=== PATIENT | female | born 1975 | race African-American/Black ===

== ENCOUNTER 2017-02-05 17:21 | Inpatient (IN) | payer OTHER ==
[~2017-02-05] VITALS: Ht 157.5 cm; Wt 83.9 kg
[2017-02-05 17:39] VITALS: Ht 157.5 cm; Wt 83.9 kg
[2017-02-05] MEDS ORDERED: ACETAMINOPHEN 325 MG TAB PO PRN (18:00)
[2017-02-05] MEDS ORDERED: NACL 0.9% 3 ML SYG IV SCH (18:00)
[2017-02-05] MEDS ORDERED: morphine 2 MG INJ IV PRN (18:00)
[2017-02-05] MEDS ORDERED: BISACODYL (EC) 5 MG TAB PO PRN (18:00)
[2017-02-05] MEDS ORDERED: DOCUSATE SODIUM 100 MG CAP PO PRN (18:00)
[2017-02-05] MEDS ORDERED: MAGNESIUM HYDROXIDE 30ML CUP PO PRN (18:00)
[2017-02-05] MEDS: AMPICILLIN/SULB 3 GM/NS (PMX) 100 ML IVPB SCH (18:27)
--- NOTE | 2017-02-05 18:59 | HP ---
Date/Time of Note Date/Time of Note DATE: 02/05/17 TIME: 18:52 Assessment/Plan VTE Prophylaxis VTE Prophylaxis Intervention: SCD's Lines/Catheters IV Catheter Type (from Nrsg): Peripheral IV Assessment/Plan Assessment/Plan 41 yo F presents with R lower jaw cellulitis suspect 2/2 underlying dental caries PLAN IV unasyn soft diet f/u OSH blood cultures in AM if able to tolerate PO, change to PO Augmentin and dc with outpatient dental f/u if PO tolerance and swelling do not improve, low threshold to repeat imaging HPI/ROS Admit Date/Time Admit Date/Time Feb 05, 2017 at 17:21 Hx of Present Illness CC R sided facial swelling HPI 41 yo F with no chronic medical problems presented to [place] ER initially on Sunday with c/o R gum pain and swelling and mild R inf jaw swelling. CT at that time without evidence of fluid collection, just soft tissue swelling consistent with cellulitis and multiple cavities in the teeth in her R lower jaw. Pt was discharged early Sunday morning with PO abx. Pt then returned to the [place] ER this AM stating that she had been unable to fill the Rx for Augmentin she'd been given at the ER and that her facial swelling now included the R side of her neck. Pt transferred to [facility] for insurance reasons. +chills at home, low grade temp. Cannot recall the last time she saw a dentist for routine dental care 10pROS neg except as per HPI PMHx: none Soc Hx: lives in the community PMH/Family/Social Social History Smoking Status: Current every day smoker Exam/Review of Systems Exam Exam nad, sitting up in bed EOMI MMM airway patent no facial erythema, +mod R lower jaw swelling, +ttp and fullness of submandibular LNs, +ttp along anterior cervical LNs on R no ttp along R inf gums lungs clear abd soft no mrg no rashes no edema OSH labs prior to transfer WBCs 9.8 hcg neg Cr 0.7 Medications Medications Current Medications Acetaminophen (Tylenol Tab) 650 mg Q6H PRN PO PAIN LEVEL 1-3 OR FEVER; Start at 18:00 Acetaminophen/ Hydrocodone Bitart ([place] (5/325)) 1 tab Q6H PRN PO MODERATE PAIN LEVEL 4-6; Start 02/05/17 at 18:00 Morphine Sulfate (morphine) 2 mg Q4H PRN IV SEVERE PAIN LEVEL 7-10; Start 02/05 at 18:00 Docusate Sodium (Colace) 100 mg Q12H PRN PO CONSTIPATION; Start 02/05/17 at 18: 00 Magnesium Hydroxide (Milk Of Mag) 30 ml DAILY PRN PO CONSTIPATION; Start at 18:00 Bisacodyl (Dulcolax) 5 mg DAILY PRN PO CONSTIPATION; Start 02/05/17 at 18:00 Enoxaparin Sodium 40 mg 40 mg DAILY SC ; Start 02/06/17 at 09:00 Ampicillin Sodium/ Sulbactam Sodium (Unasyn 3gm/NS (Pmx)) 100 ml @ 100 mls/hr Q6 IVPB Last administered on 02/05/17t 18:27; Admin Dose 100 MLS/HR; Start at 18:00 CRUZ CRAFT MD Feb 05, 2017 18:59
[2017-02-05 20:00] VITALS: BP 118/68; RESP 18
[2017-02-05] MEDS: HYDROCODONE/APAP (5/325) TAB PO PRN (22:23)
[2017-02-06] MEDS: AMPICILLIN/SULB 3 GM/NS (PMX) 100 ML IVPB SCH ×5 (00:08→19:47)
[2017-02-06 02:27] VITALS: BP 105/64; RESP 16
[2017-02-06 05:39] LABS: BASOPHILS % 0.2 % (0.0-2.0); EOSINOPHILS # 0.4 10^3/ul (0.0-0.5); EOSINOPHILS % 5.5 % (0.0-7.0); HEMATOCRIT 34.8 % (37.0-47.0); HEMOGLOBIN 11.1 g/dl (12.0-16.0); LYMPHOCYTES % 37.2 % (15.0-51.0); MEAN CORPUSCULAR HEMOGLOBIN 26.2 pg (29.0-33.0); MEAN CORPUSCULAR HGB CONC 31.9 g/dl (32.0-37.0); MEAN CORPUSCULAR VOLUME 82.3 fl (82.0-101.0); MEAN PLATELET VOLUME 8.9 fl (7.4-10.4); MONOCYTE # 0.5 10^3/ul (0.3-0.9); NEUTROPHILS % 50.9 % (39.0-77.0); PLATELET COUNT 338 10^3/UL (140-415); RED BLOOD COUNT 4.23 10^6/ul (4.20-5.40); RED CELL DISTRIBUTION WIDTH 13.3 % (11.5-14.5)
[2017-02-06 06:08] LABS: ALBUMIN 3.7 g/dl (3.3-4.9); ALBUMIN/GLOBULIN RATIO 1.08; BILIRUBIN,INDIRECT 0.4 mg/dl (0-1.1); BILIRUBIN,TOTAL 0.4 mg/dl (0.2-1.3); CALCIUM 8.8 mg/dl (8.4-10.2); CREATININE 0.63 mg/dl (0.44-1.00); POTASSIUM 3.3 mmol/L (3.5-5.1); TOTAL PROTEIN 7.1 g/dl (6.1-8.1)
[2017-02-06 08:15] VITALS: BP 112/64; RESP 18
[2017-02-06] MEDS: ENOXAPARIN 40 MG/0.4 ML SYG SC SCH (09:00)
[2017-02-06] MEDS ORDERED: POTASSIUM CHLORIDE (SR) 20 MEQ TAB PO STA (09:02)
[2017-02-06] MEDS: HYDROCODONE/APAP (5/325) TAB PO PRN ×2 (14:53→21:55)
--- NOTE | 2017-02-06 15:05 | PN ---
Date/Time of Note Date/Time of Note DATE: 02/06/17 TIME: 15:04 Assessment/Plan VTE Prophylaxis VTE Prophylaxis Intervention: SCD's Lines/Catheters IV Catheter Type (from Nrs): Saline Lock Urinary Cath still in place: No Assessment/Plan Assessment/Plan 41 yo F presents with R lower jaw cellulitis suspect 2/2 underlying dental caries PLAN IV unasyn soft diet f/u OSH blood cultures in AM CT neck to r/o abscess Subjective 24 Hr Interval Summary Free Text/Dictation R inferior facial swelling improving but now with more submandibular swelling Exam/Review of Systems Vital Signs Vitals Vital Signs Date Time Temp Pulse Resp B/P Pulse Ox O2 Delivery O2 Flow Rate FiO2 02/06/17 08:15 98.1 83 18 112/64 98 Intake and Output 02/05/17 02/05/17 02/06/17 14:59 22:59 06:59 Intake Total 220 ml 200 ml Balance 220 ml 200 ml Exam nad r lower facial swelling improved, inc ttp R submandibular LNs lungs clear no mrg abd soft no rashes WBCs ok blood cultures at [facility] at 24 hours Results Result Diagram: 02/06/17 0502 02/06/17 0515 Results 24 hrs Laboratory Tests Test 02/06/17 05:02 02/06/17 05:15 White Blood Count 8.0 Red Blood Count 4.23 Hemoglobin 11.1 L Hematocrit 34.8 L Mean Corpuscular Volume 82.3 Mean Corpuscular Hemoglobin 26.2 L Mean Corpuscular Hemoglobin Concent 31.9 L Red Cell Distribution Width 13.3 Platelet Count 338 Mean Platelet Volume 8.9 Neutrophils % 50.9 Lymphocytes % 37.2 Monocytes % 6.0 Eosinophils % 5.5 Basophils % 0.2 Nucleated Red Blood Cells % 0.0 Neutrophils # (Manual) 4 Lymphocytes # 3.0 H Monocytes # 0.5 Eosinophils # 0.4 Basophils # 0.0 Nucleated Red Blood Cells # 0.0 Sodium Level 136 Potassium Level 3.3 L Chloride Level 96 L Carbon Dioxide Level 30 Anion Gap 13 Blood Urea Nitrogen 4 L Creatinine 0.63 Glucose Level 90 Calcium Level 8.8 Total Bilirubin 0.4 Direct Bilirubin 0.00 Indirect Bilirubin 0.4 Aspartate Amino Transf (AST/SGOT) 13 L Alanine Aminotransferase (ALT/SGPT) 26 Alkaline Phosphatase 62 Total Protein 7.1 Albumin 3.7 Globulin 3.40 H Albumin/Globulin Ratio 1.08 Medications Medications Current Medications Acetaminophen (Tylenol Tab) 650 mg Q6H PRN PO PAIN LEVEL 1-3 OR FEVER; Start at 18:00 Acetaminophen/ Hydrocodone Bitart ([place] (5/325)) 1 tab Q6H PRN PO MODERATE PAIN LEVEL 4-6 Last administered on 02/06/17 14:53; Admin Dose 1 TAB; Start at 18:00 Morphine Sulfate (morphine) 2 mg Q4H PRN IV SEVERE PAIN LEVEL 7-10; Start 02/05 at 18:00 Docusate Sodium (Colace) 100 mg Q12H PRN PO CONSTIPATION; Start 02/05/17 at 18: 00 Magnesium Hydroxide (Milk Of Mag) 30 ml DAILY PRN PO CONSTIPATION; Start at 18:00 Bisacodyl (Dulcolax) 5 mg DAILY PRN PO CONSTIPATION; Start 02/05/17 at 18:00 Enoxaparin Sodium 40 mg 40 mg DAILY SC Last administered on 02/06/17 09:00; Admin Dose 40 MG; Start 02/06/17 at 09:00 Ampicillin Sodium/ Sulbactam Sodium (Unasyn 3gm/NS (Pmx)) 100 ml @ 100 mls/hr Q6 IVPB Last administered on 02/06/17 12:19; Admin Dose 100 MLS/HR; Start at 18:00 CRUZ CRAFT MD Feb 06, 2017 15:05
[2017-02-06 15:10] VITALS: BP 124/69; RESP 19
[2017-02-06] MEDS ORDERED: SOD CHLORIDE 0.9% 100 ML ONE (19:06)
[2017-02-06] MEDS ORDERED: IOHEXOL 300MG/ML 150 ML BTL ONE (19:06)
[2017-02-06 20:42] VITALS: BP 107/59; RESP 20
[2017-02-07] MEDS: AMPICILLIN/SULB 3 GM/NS (PMX) 100 ML IVPB SCH (00:44)
[2017-02-07] MEDS ORDERED: DIPHENHYDRAMINE 50 MG INJ IV PRN (02:30)
[2017-02-07 02:47] VITALS: BP 108/60; RESP 20
--- NOTE | 2017-02-07 03:06 | RADRPT ---
PROCEDURE: CT neck without and with contrast CLINICAL INDICATION: R submandibular swelling in setting of lower facial cellulit TECHNIQUE: Thin section spiral CT images through the neck before and after injection of 85 cc of O [id number] contrast material. Coronal and sagittal reformatted images were obtained. The admini stered radiation dose is CTDI 25.14 and DLP 648.25. One or more of the following dose reduction tech niques were used: automated exposure control, adjustment of the mA and/or kV according to patient si ze, or use of iterative reconstruction technique. COMPARISON: No prior studies are available for comparison. FINDINGS: There is prominent dental hardware related artifact. Small calcifications of the right tonsil are s een. There is slight soft tissue fullness of the right greater than left parapharyngeal space witho ut definite discrete mass. The right submandibular gland is slightly enlarged compared with the lef t. No definite ductal dilatation or stone is seen. Slightly enlarged right retromandibular node is seen measuring 1.2 cm in short axis dimension. Several subcentimeter neck nodes are otherwise seen bilaterally. Small probable intraparotid lymph nodes on the right. The nasopharynx is unremarkabl e. The epiglottis is unremarkable appearance. No prevertebral soft tissue swelling is seen. No de finite vascular abnormality. The thyroid is unremarkable in appearance.. No discrete abscess is se en. IMPRESSION: Slight enlargement of the right submandibular gland compared with the left without definite ductal s tone. Slightly enlarged right neck nodes and slight prominence of the right greater than left parap haryngeal soft tissues without definite discrete mass or abscess. Dental hardware related artifact. If symptoms persist, MRI may be helpful. RPTAT: HLBE Physician Mer Date Time Electronically viewed and signed by Cherelle Lyn Physician on 02/07/2017 03:05 LE/
[2017-02-07 05:31] LABS: BASOPHILS % 0.2 % (0.0-2.0); EOSINOPHILS # 0.5 10^3/ul (0.0-0.5); EOSINOPHILS % 10.1 % (0.0-7.0); HEMATOCRIT 33.6 % (37.0-47.0); LYMPHOCYTES # 1.7 10^3/ul (0.8-2.9); LYMPHOCYTES % 31.4 % (15.0-51.0); MEAN CORPUSCULAR HEMOGLOBIN 26.8 pg (29.0-33.0); MEAN CORPUSCULAR HGB CONC 32.7 g/dl (32.0-37.0); MEAN PLATELET VOLUME 8.6 fl (7.4-10.4); MONOCYTE # 0.4 10^3/ul (0.3-0.9); NEUTROPHILS % 50.9 % (39.0-77.0); PLATELET COUNT 366 10^3/UL (140-415); WHITE BLOOD COUNT 5.3 10^3/ul (4.8-10.8)
[2017-02-07 06:00] LABS: CREATININE 0.62 mg/dl (0.44-1.00); POTASSIUM 3.7 mmol/L (3.5-5.1)
[2017-02-07 07:49] VITALS: BP 107/59; RESP 16
[2017-02-07] MEDS: ENOXAPARIN 40 MG/0.4 ML SYG SC SCH (09:44)
[2017-02-07] MEDS: HYDROCODONE/APAP (5/325) TAB PO PRN ×2 (09:47→18:12)
[2017-02-07 12:46] VITALS: BP 102/62; RESP 16
[2017-02-07] MEDS: CLINDAMYCIN 900 MG/D5W (PMX) 50 ML IVPB SCH ×3 (14:12→23:27)
--- NOTE | 2017-02-07 14:16 | PN ---
Date/Time of Note Date/Time of Note DATE: 02/07/17 TIME: 14:12 Assessment/Plan VTE Prophylaxis VTE Prophylaxis Intervention: SCD's Lines/Catheters IV Catheter Type (from Nrsg): Saline Lock Urinary Cath still in place: No Assessment/Plan Assessment/Plan 41 yo F presents with R lower jaw cellulitis suspect 2/2 underlying dental caries. Repeat imaging without abscess. PLAN change unasyn to clindamycin soft diet Subjective 24 Hr Interval Summary Free Text/Dictation Pt had some itching overnight following Unasyn dose. Facial swelling unchanged Exam/Review of Systems Vital Signs Vitals Vital Signs Date Time Temp Pulse Resp B/P Pulse Ox O2 Delivery O2 Flow Rate FiO2 02/07/17 12:46 98.4 90 16 102/62 98 Intake and Output 02/06/17 02/06/17 02/07/17 15:00 23:00 07:00 Intake Total 100 ml 460 ml Balance 100 ml 460 ml Exam nad +ttp submandibular LNs no mrg lungs clear no rashes CT without fluid collection Results Result Diagram: 02/07/17 0507 02/07/17 0507 Results 24 hrs Laboratory Tests Test 02/07/17 05:07 White Blood Count 5.3 # Red Blood Count 4.10 L Hemoglobin 11.0 L Hematocrit 33.6 L Mean Corpuscular Volume 82.0 Mean Corpuscular Hemoglobin 26.8 L Mean Corpuscular Hemoglobin Concent 32.7 Red Cell Distribution Width 13.0 Platelet Count 366 Mean Platelet Volume 8.6 Neutrophils % 50.9 Lymphocytes % 31.4 Monocytes % 7.0 Eosinophils % 10.1 H Basophils % 0.2 Nucleated Red Blood Cells % 0.0 Neutrophils # (Manual) 3 Lymphocytes # 1.7 Monocytes # 0.4 Eosinophils # 0.5 Basophils # 0.0 Nucleated Red Blood Cells # 0.0 Sodium Level 140 Potassium Level 3.7 Chloride Level 95 L Carbon Dioxide Level 31 Anion Gap 18 H Blood Urea Nitrogen 4 L Creatinine 0.62 Glucose Level 91 Calcium Level 9.0 Medications Medications Current Medications Acetaminophen (Tylenol Tab) 650 mg Q6H PRN PO PAIN LEVEL 1-3 OR FEVER Last administered on 02/07/17t 00:54; Admin Dose 650 MG; Start 02/05/17 at 18:00 Acetaminophen/ Hydrocodone Bitart ([place] (5/325)) 1 tab Q6H PRN PO MODERATE PAIN LEVEL 4-6 Last administered on 02/07/17 09:47; Admin Dose 1 TAB; Start at 18:00 Morphine Sulfate (morphine) 2 mg Q4H PRN IV SEVERE PAIN LEVEL 7-10; Start 02/05 at 18:00 Docusate Sodium (Colace) 100 mg Q12H PRN PO CONSTIPATION; Start 02/05/17 at 18: 00 Magnesium Hydroxide (Milk Of Mag) 30 ml DAILY PRN PO CONSTIPATION; Start at 18:00 Bisacodyl (Dulcolax) 5 mg DAILY PRN PO CONSTIPATION; Start 02/05/17 at 18:00 Enoxaparin Sodium (Lovenox) 40 mg DAILY SC Last administered on 02/07/17 09:44 ; Admin Dose 40 MG; Start 02/06/17 at 09:00 Diphenhydramine HCl 25 mg 25 mg Q8H PRN IV ITCHING Last administered on 02:24; Admin Dose 25 MG; Start 02/07/17 at 02:30 Clindamycin HCl/ Dextrose (Cleocin 900 Mg/ D5W (Pmx)) 50 ml @ 50 mls/hr Q6 IVPB ; Start 02/07/17 at 12:00 Procedures Procedures OSH blood cultures from . still negative CRUZ CRAFT MD Feb 07, 2017 14:15
[2017-02-07 20:08] VITALS: BP 110/59; RESP 18
[2017-02-08 02:00] VITALS: BP 113/60; RESP 18
[2017-02-08] MEDS: CLINDAMYCIN 900 MG/D5W (PMX) 50 ML IVPB SCH ×2 (05:59→11:43)
[2017-02-08 06:09] LABS: BASOPHILS % 0.4 % (0.0-2.0); EOSINOPHILS # 0.5 10^3/ul (0.0-0.5); EOSINOPHILS % 11.6 % (0.0-7.0); HEMATOCRIT 34.8 % (37.0-47.0); HEMOGLOBIN 10.9 g/dl (12.0-16.0); LYMPHOCYTES # 1.7 10^3/ul (0.8-2.9); LYMPHOCYTES % 36.8 % (15.0-51.0); MEAN CORPUSCULAR HEMOGLOBIN 25.7 pg (29.0-33.0); MEAN CORPUSCULAR HGB CONC 31.3 g/dl (32.0-37.0); MEAN CORPUSCULAR VOLUME 82.1 fl (82.0-101.0); MEAN PLATELET VOLUME 8.9 fl (7.4-10.4); MONOCYTE # 0.5 10^3/ul (0.3-0.9); MONOCYTES % 10.8 % (0.0-11.0); NEUTROPHILS % 39.8 % (39.0-77.0); PLATELET COUNT 387 10^3/UL (140-415); RED BLOOD COUNT 4.24 10^6/ul (4.20-5.40); RED CELL DISTRIBUTION WIDTH 13.1 % (11.5-14.5); WHITE BLOOD COUNT 4.7 10^3/ul (4.8-10.8)
[2017-02-08 07:51] VITALS: BP 119/61; RESP 16
[2017-02-08] MEDS: ENOXAPARIN 40 MG/0.4 ML SYG SC SCH (08:43)
[2017-02-08 15:13] VITALS: BP 119/69; RESP 16
--- NOTE | 2017-02-08 15:14 | PN ---
Date/Time of Note Date/Time of Note DATE: 02/08/17 TIME: 15:12 Assessment/Plan VTE Prophylaxis VTE Prophylaxis Intervention: SCD's Lines/Catheters IV Catheter Type (from Nrsg): Saline Lock Urinary Cath still in place: No Assessment/Plan Assessment/Plan 41 yo F presents with R lower jaw cellulitis suspect 2/2 underlying dental caries. Repeat imaging was without abscess. PLAN change clinda from IV to PO soft diet likely discharge in AM Subjective 24 Hr Interval Summary Free Text/Dictation feeling a little better Exam/Review of Systems Vital Signs Vitals Vital Signs Date Time Temp Pulse Resp B/P Pulse Ox O2 Delivery O2 Flow Rate FiO2 02/08/17 07:51 98.6 85 16 119/61 98 Intake and Output 02/07/17 02/07/17 02/08/17 15:00 23:00 07:00 Intake Total 820 ml 700 ml Balance 820 ml 700 ml Exam submandibular lymph nodes less swollen no mrg lungs clear abd soft no rashes Results Result Diagram: 02/08/17 0508 02/07/17 0507 Results 24 hrs Laboratory Tests Test 02/08/17 05:08 White Blood Count 4.7 L Red Blood Count 4.24 Hemoglobin 10.9 L Hematocrit 34.8 L Mean Corpuscular Volume 82.1 Mean Corpuscular Hemoglobin 25.7 L Mean Corpuscular Hemoglobin Concent 31.3 L Red Cell Distribution Width 13.1 Platelet Count 387 Mean Platelet Volume 8.9 Neutrophils % 39.8 Lymphocytes % 36.8 Monocytes % 10.8 Eosinophils % 11.6 H Basophils % 0.4 Nucleated Red Blood Cells % 0.0 Neutrophils # (Manual) 2 Lymphocytes # 1.7 Monocytes # 0.5 Eosinophils # 0.5 Basophils # 0.0 Nucleated Red Blood Cells # 0.0 Medications Medications Current Medications Acetaminophen (Tylenol Tab) 650 mg Q6H PRN PO PAIN LEVEL 1-3 OR FEVER Last administered on 02/07/17 00:54; Admin Dose 650 MG; Start 02/05/17 at 18:00 Acetaminophen/ Hydrocodone Bitart ([place] (5/325)) 1 tab Q6H PRN PO MODERATE PAIN LEVEL 4-6 Last administered on 02/07/17 18:12; Admin Dose 1 TAB; Start at 18:00 Morphine Sulfate (morphine) 2 mg Q4H PRN IV SEVERE PAIN LEVEL 7-10; Start 02/05 at 18:00 Docusate Sodium (Colace) 100 mg Q12H PRN PO CONSTIPATION; Start 02/05/17 at 18: 00 Magnesium Hydroxide (Milk Of Mag) 30 ml DAILY PRN PO CONSTIPATION Last administered on 02/08/17 06:36; Admin Dose 30 ML; Start 02/05/17 at 18:00 Bisacodyl (Dulcolax) 5 mg DAILY PRN PO CONSTIPATION; Start 02/05/17 at 18:00 Enoxaparin Sodium (Lovenox) 40 mg DAILY SC Last administered on 02/08/17 08:43 ; Admin Dose 40 MG; Start 02/06/17 at 09:00 Diphenhydramine HCl 25 mg 25 mg Q8H PRN IV ITCHING Last administered on 02:24; Admin Dose 25 MG; Start 02/07/17 at 02:30 Clindamycin HCl/ Dextrose (Cleocin 900 Mg/ D5W (Pmx)) 50 ml @ 50 mls/hr Q6 IVPB Last administered on 02/08/17 11:43; Admin Dose 50 MLS/HR; Start 02/07/17 at 12:00 CRUZ CRAFT MD Feb 08, 2017 15:13
[2017-02-08] MEDS: CLINDAMYCIN 150 MG CAP PO SCH ×2 (17:14→23:20)
[2017-02-08 19:39] VITALS: BP 125/75; RESP 16
[2017-02-09 02:04] VITALS: BP 105/65; RESP 18
[2017-02-09] MEDS: CLINDAMYCIN 150 MG CAP PO SCH (05:05)
[2017-02-09 06:02] LABS: BASOPHILS % 0.4 % (0.0-2.0); EOSINOPHILS # 0.6 10^3/ul (0.0-0.5); EOSINOPHILS % 11.9 % (0.0-7.0); HEMATOCRIT 37.3 % (37.0-47.0); HEMOGLOBIN 11.8 g/dl (12.0-16.0); LYMPHOCYTES # 1.9 10^3/ul (0.8-2.9); LYMPHOCYTES % 40.6 % (15.0-51.0); MEAN CORPUSCULAR HGB CONC 31.6 g/dl (32.0-37.0); MEAN CORPUSCULAR VOLUME 82.3 fl (82.0-101.0); MEAN PLATELET VOLUME 8.6 fl (7.4-10.4); MONOCYTE # 0.5 10^3/ul (0.3-0.9); MONOCYTES % 9.8 % (0.0-11.0); NEUTROPHILS % 36.7 % (39.0-77.0); PLATELET COUNT 402 10^3/UL (140-415); RED BLOOD COUNT 4.53 10^6/ul (4.20-5.40); RED CELL DISTRIBUTION WIDTH 13.3 % (11.5-14.5); WHITE BLOOD COUNT 4.8 10^3/ul (4.8-10.8)
[2017-02-09 08:37] VITALS: BP 105/64; RESP 16
[2017-02-09] MEDS ORDERED: CLIN-72 PO (11:33)
[2017-02-09] MEDS: ENOXAPARIN 40 MG/0.4 ML SYG SC SCH (11:38)
--- NOTE | 2017-02-09 11:38 | PDOCDIS ---
Discharge Instructions DIAGNOSIS Discharge Diagnosis cellulitis CONDITION Patient Condition: Good HOME CARE INSTRUCTIONS: Diet Instructions: Regular ACTIVITY: Activity Restrictions: No Restrictions FOLLOW UP/APPOINTMENTS Follow-up Plan With your dentist on Sunday CRUZ CRAFT MD Feb 09, 2017 11:38
--- NOTE | 2017-02-09 11:41 | DS ---
Date/Time of Note Date/Time of Note DATE: 02/09/17 TIME: 11:38 Discharge Summary Admission/Discharge Info Admit Date/Time Feb 05, 2017 at 17:21 Discharge Date/Time Discharge Diagnosis cellulitis Patient Condition: Good Procedures CT soft tissue neck IMPRESSION: Slight enlargement of the right submandibular gland compared with the left without definite ductal stone. Slightly enlarged right neck nodes and slight prominence of the right greater than left parapharyngeal soft tissues without definite discrete mass or abscess. Dental hardware related artifact. If symptoms persist, MRI may be helpful. Hx of Present Illness CC R sided facial swelling HPI 41 yo F with no chronic medical problems presented to [place] ER initially on Sunday with c/o R gum pain and swelling and mild R inf jaw swelling. CT at that time without evidence of fluid collection, just soft tissue swelling consistent with cellulitis and multiple cavities in the teeth in her R lower jaw. Pt was discharged early Sunday morning with PO abx. Pt then returned to the [place] ER this AM stating that she had been unable to fill the Rx for Augmentin she'd been given at the ER and that her facial swelling now included the R side of her neck. Pt transferred to [facility] for insurance reasons. +chills at home, low grade temp. Cannot recall the last time she saw a dentist for routine dental care 10pROS neg except as per HPI PMHx: none Soc Hx: lives in the [facility] Pt transferred from OSH for insurance reasons. Started on Unasyn. Facial swelling was improving but on HD2 pt began having itching after Unasyn, concern for allergic reaction. Pt changed to clinda and itching resolved. Pt tolerating PO by date of discharge and will see a dentist Sunday. Home Meds Active Scripts Clindamycin Hcl* (Cleocin*) 150 Mg Cap, 450 MG PO Q6 for 4 Days, #16 CAP Prov:CRUZ CRAFT MD 02/09/17 Follow-up Plan Dentist Sunday PCP within 14 days Primary Care Provider Not On Staff Doctor Pending Labs Laboratory Tests Test 02/09/17 05:19 White Blood Count 4.810^3/ul (4.8-10.8) Red Blood Count 4.5310^6/ul (4.20-5.40) Hemoglobin 11.8g/dl (12.0-16.0) Hematocrit 37.3% (37.0-47.0) Mean Corpuscular Volume 82.3fl (82.0-101.0) Mean Corpuscular Hemoglobin 26.0pg (29.0-33.0) Mean Corpuscular Hemoglobin Concent 31.6g/dl (32.0-37.0) Red Cell Distribution Width 13.3% (11.5-14.5) Platelet Count 67915^3/UL (140-415) Mean Platelet Volume 8.6fl (7.4-10.4) Neutrophils % 36.7% (39.0-77.0) Lymphocytes % 40.6% (15.0-51.0) Monocytes % 9.8% (0.0-11.0) Eosinophils % 11.9% (0.0-7.0) Basophils % 0.4% (0.0-2.0) Nucleated Red Blood Cells % 0.0/100WBC (0.0-0.0) Neutrophils # (Manual) 1.810^3/ul (1.7-7.5) Lymphocytes # 1.910^3/ul (0.8-2.9) Monocytes # 0.510^3/ul (0.3-0.9) Eosinophils # 0.610^3/ul (0.0-0.5) Basophils # 0.010^3/ul (0.0-0.1) Nucleated Red Blood Cells # 0.010^3/ul (0.0-0.0) CRUZ CRAFT MD Feb 09, 2017 11:41
== END 2017-02-09 14:25 | disposition home or self-care (01) | DRG 603 ==
LOC: MS2 17:21
PROVIDERS: ADMIT Internal Medicine; ATTEND Internal Medicine
DX: L03.211 Cellulitis of face (principal); K02.9 Dental caries, unspecified; R59.9 Enlarged lymph nodes, unspecified; R22.1 Localized swelling, mass and lump, neck
CPT/HCPCS: 70492; 80048; 80053; 85025; J0295; J1200; J1650; Q9967